=== PATIENT | female | born 1975 | race Caucasian/White ===

== ENCOUNTER 2020-04-09 12:05 | Emergency (ER) | payer MEDICAID, SELFPAY ==
[2020-04-09] VITALS (7 sets, daily range): BP systolic 92–128; BP diastolic 56–76; PULSE 83–126; RESP 12–98; TEMP 37.6–39.7; O2SAT 91–100; BMI 31.4
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
[2020-04-09 13:00] LABS: Basophils % 0.3 %; Eosinophils % 0.6 %; Hematocrit 39.5 % (37.0-47.0); Hemoglobin 12.6 g/dL (11.5-15.3); Lymphocytes # 0.5 10^3/uL (0.8-4.8); Lymphocytes % 6.7 %; Mean Corpuscular HGB Conc 31.9 g/dL (30.0-36.0); Mean Corpuscular Volume 97.1 fL (81-99); Mean Platelet Volume 9.7 fL (7.4-10.4); Monocytes # 0.4 10^3/uL (0.2-0.9); Monocytes % 4.9 %; Neutrophils # 6.28 10^3/uL (1.8-7.7); Neutrophils % 87.1 %; Nucleated Red Blood Cells % 0 %; Platelet Count 218 10^3/cmm (130-400); Red Blood Count 4.07 10^6/uL (4.1-5.3); Red Cell Distribution Width 12.6 % (12.1-15.1); White Blood Count 7.2 10^3/uL (4.0-10.0)
[2020-04-09] MEDS: morphine 4 mg/mL SDV 1 mL IVP ×2 (13:10→15:54)
[2020-04-09 13:17] LABS: Lactate (Lactic Acid level) 1.6 mmol/L (0.5-2.2)
[2020-04-09 13:18] LABS: Alanine Aminotransferase 55 U/L (0-33); Albumin Level 3.9 g/dL (3.5-5.2); Alkaline Phosphatase 168 IU/L (35-105); Anion Gap 11.6 (5-19); Aspartate Amino Transferase 43 U/L (0-32); Blood Urea Nitrogen 4 mg/dL (6-20); Calcium 8.4 mg/dL (8.5-10.5); Carbon Dioxide 27 mmol/L (22-29); Chloride 101 mmol/L (98-107); Globulin 3.6 g/dL (1.3-4.6); Glomerular Filtration Rate 90.9 mL/min (90-130); Glucose 145 mg/dL (65-115); Osmolality Calculated 280 mOsm/kg (285-295); Potassium 3.6 mmol/L (3.5-5.1); Sodium 136 mmol/L (136-145); Total Bilirubin 0.5 mg/dL (0.15-1.2); Total Protein 7.5 g/dL (6.6-8.7)
[2020-04-09 13:24] LABS: Alcohol Level < 10 mg/dL (0-10)
--- NOTE | 2020-04-09 13:39 | PC.NURSE ---
INFORMED DR. MONTES OF PT BEING PLACED ON 2 L NC FOR SATS OF 89% AND THEN INCREASE TO 96% VERBALIZED UNDERSTANDING NO FURTHER ORDERS. DR. MONTES INFORMED OF PT HR OF 126BPM VO WITH READ BACK TO ADM 1L BOLUS OF NS AT 999ML/HR AND 1G OF TYLENOL PO. PT TRANSPORTED TO CT VIA [employer] [facility] [employer].
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
[2020-04-09] MEDS: acetaminophen 500 mg Tablet 1000 MG PO (14:28)
[2020-04-09] MEDS: sodium chloride 0.9% 1,000 ML 999 ML IV ×3 (14:29→19:46)
--- NOTE | 2020-04-09 14:30 | PC.NURSE ---
PT STATES THAT SHE CAN NOT PROVIDE URINE SPECIMEN AT THIS TIME.
--- NOTE | 2020-04-09 16:47 | PC.NURSE ---
CALLED TO BEDSIDE PT OUT OF BED STATING, I'VE GOT TO GO TO THE BATHROOM . I INFORMED HERE THAT I WILL GET HER A BED GUERRA PT REFUSED STATING, I CAN'T . PT THEN INFORMED IT IS DANGEROUS FOR HER TO AMBULATE. PT REFUSED STATING, I CAN'T I GOT TO GO NUMBER [address] MONTES NO FURTHER ORDERS.
[2020-04-09 17:09] LABS: Add Urine Microscopic? NO
[2020-04-09 17:13] LABS: Blood Urine Neg (Negative); Glucose Urine UA Norm (Normal); HCG Qualitative Urine. Negative (Negative); Ketones Urine Negative (Negative); Protein Urine Neg (Negative); Urine Appearance Clear (CLEAR); Urine Color Yellow (Yellow); pH Urine 5 (5-7)
[2020-04-09 17:14] LABS: Bilirubin Urine Neg (NEGATIVE); Leukocyte Esterase Urine Negative (Negative); Nitrate Urine Negative (Negative); Urobilinogen Urine Norm (Negative)
--- NOTE | 2020-04-09 17:15 | PC.NURSE ---
ATTEMPTED REPORT NURSE UNAVAILABLE.
[2020-04-09 17:21] LABS: Amphetamines Screen Urine Positive (Negative); Barbiturates Screen Urine Negative (Negative); Benzodiazepines Screen Urine Positive (Negative); Cocaine Screen Urine Negative (Negative); Opiate Screen Urine Positive (Negative); PCP Screen Urine Negative (Negative); THC Screen Urine Negative (Negative)
--- NOTE | 2020-04-09 19:27 | PC.NURSE ---
WHILE AT BEDSIDE PT IS RESTING QUIETLY WITH EYES CLOSED. PT IS IN NAD. PTIS AROUSED WITH LIGHT PHYSICAL STIMULI.
--- NOTE | 2020-04-09 20:21 | PC.NURSE ---
REPORT GIVEN TO JENIFER Allan [employer]UMED [employer]. PT IS IN NAD WHILE AT BEDSIDE.
== END 2020-04-09 20:25 | disposition short-term general hospital (02) ==
PROVIDERS: Emergency Provider Family Medicine; PCP Family Medicine
DX: S22.081A Stable burst fracture of T11-T12 vertebra, initial encounter for closed fracture (principal); V89.2XXA Person injured in unspecified motor-vehicle accident, traffic, initial encounter
CPT/HCPCS: 12345; 70450; 71250; 72125; 72128; 72131; 74176; 80053; 80306; 80307; 81003; 81025; 83605; 85025; 96360; 96361; 96374; 96375; 96376; 99283; 99285; J2270; J7030

== ENCOUNTER 2020-06-07 18:04 | Emergency (ER) | payer MEDICAID, SELFPAY ==
[2020-06-07 18:17] VITALS: BP 147/62; PULSE 100; RESP 18; TEMP 36.7; O2SAT 95; BMI 27.4
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
[2020-06-07 19:37] VITALS: RESP 18; O2SAT 97
[2020-06-07] MEDS: predniSONE 20 mg Tablet 60 MG PO (19:37)
[2020-06-07] MEDS: oxyCODONE-APAP 5-325 mg Tablet 1 TAB PO (19:37)
[2020-06-07 19:39] VITALS: BP 142/72; PULSE 92; RESP 18; O2SAT 99
== END 2020-06-07 19:42 | disposition home or self-care (01) ==
PROVIDERS: Emergency Provider Physician Assistant
DX: M54.16 Radiculopathy, lumbar region (principal); Z98.890 Other specified postprocedural states
CPT/HCPCS: 12345; 99281; 99283; J7512